=== PATIENT | male | born 1970 | race Caucasian/White ===

== ENCOUNTER 2017-11-16 20:38 | Emergency (ER) | payer OTHER ==
[2017-11-16] MEDS ORDERED: Proparacaine 0.5% Opth 15 ML BOT ONE (20:58)
[2017-11-16] MEDS ORDERED: Fluorescein Opthalmic Strip ONE (20:58)
== END 2017-11-16 21:22 | disposition home or self-care (01) ==
LOC: ERS 20:38
DX: S05.01XA Injury of conjunctiva and corneal abrasion without foreign body, right eye, initial encounter (principal); H11.31 Conjunctival hemorrhage, right eye; Z86.73 Personal history of transient ischemic attack (TIA), and cerebral infarction without residual deficits; X58.XXXA Exposure to other specified factors, initial encounter
CPT/HCPCS: 99283

== ENCOUNTER 2018-12-28 09:34 | Outpatient (CLI) | payer OTHER ==
--- NOTE | 2018-12-28 10:54 | CT ---
CT ABDOMEN AND PELVIS WITH CONTRAST: HISTORY: Lower abdominal pain. Periumbilical pain. COMPARISON: CT of 06/13/2014. FINDINGS: The lung bases are clear. No pericardial effusion. The liver, gallbladder, spleen, pancreas, and ad renal glands are all normal. The aortoiliac contour is nonaneurysmal. The liver is mild asymmetric with soft tissue swelling over the left flank involving the subcutaneous fat which may be the sequelae of a contusion with third spacing of fluid. There is mild diverticular disease of the sigmoid colon without active apparent inflammation. No dil ated loops of large or small bowel. The appendix is visualized and is normal. Gallbladder and liver are unremarkable. No hydronephrosis. Superior mesenteric artery and celiac tr unk are both patent. Inferior mesenteric artery is patent. Moderate posterior degenerative disk space height loss with disk-osteophyte complex at L5-S1. No acu te osseous abnormality. IMPRESSION: 1. No acute inflammatory process in the abdomen or pelvis. No findings to explain the patient's abd ominal pain. 2. Mild asymmetric left flank soft tissue swelling which could reflect third spacing of fluid, less likely a contusion. POS: [facility]
[2018-12-28] MEDS ORDERED: Iopamidol 370 76% 100 ML VIAL ONE (16:21)
== END 2018-12-28 09:35 | disposition home or self-care (01) ==
LOC: CT 09:34
PROVIDERS: ATTEND Physician Assistant Medical
DX: K57.30 Diverticulosis of large intestine without perforation or abscess without bleeding (principal); R10.30 Lower abdominal pain, unspecified; R14.0 Abdominal distension (gaseous); M79.89 Other specified soft tissue disorders
CPT/HCPCS: 74177; Q9967

== ENCOUNTER 2021-12-03 07:24 | Outpatient (CLI) | payer BC ==
[2021-12-03] MEDS ORDERED: GASTROGRAFIN 30 ML BOT ONE (10:38)
[2021-12-03] MEDS ORDERED: Iopamidol 370 76% 100 ML VIAL ONE (10:38)
== END 2021-12-03 07:25 | disposition home or self-care (01) ==
LOC: CT 07:24
PROVIDERS: ATTEND Physician Assistant Medical
DX: K57.92 Diverticulitis of intestine, part unspecified, without perforation or abscess without bleeding (principal); R10.30 Lower abdominal pain, unspecified; K52.9 Noninfective gastroenteritis and colitis, unspecified
CPT/HCPCS: 74177; Q9963; Q9967

== ENCOUNTER 2023-02-21 16:52 | Emergency (ER) | payer BC ==
[2023-02-21 17:37] LABS: #Basophils 0.1 thou/uL (0.0-0.2); #Eosinphils 0.4 thou/uL (0.0-0.7); #Monocytes 0.7 thou/uL (0.11-0.59); #Neutrophils 3.6 thou/uL (1.40-6.50); %Basophils 0.6 % (0.0-1.0); %Eosinophils 5.4 % (0.0-10.0); %Lymphocytes 38.4 % (21.0-51.0); %Monocytes 9.1 % (0.0-10.0); %Neutrophils 46.1 % (42.0-75.0); Hematocrit 43.4 % (42.0-52.0); Hemoglobin 14.5 g/dL (14.0-18.0); Mean Corpuscular HGB CONC 33.4 g/dL (32.0-36.0); Mean Corpuscular Volume 92.9 fl (78.0-98.0); Mean Platelet Volume 9.6 fL (7.4-10.4); Platelet Count 334 10x3/uL (130-400); RBC Distribution Width 12.4 % (11.5-14.5); Red Blood Cell (RBC) Count 4.67 mill/uL (4.70-6.10); White Blood Cell (WBC) Count 7.8 10x3/uL (4.8-10.8)
[2023-02-21 17:59] LABS: ALT (SGPT) 27 U/L (8-55); AST (SGOT) 23 U/L (5-34); Albumin 4.1 g/dL (3.5-5.0); Alkaline Phosphatase 29 U/L (40-110); Anion Gap 15 mmol/L (10-20); BUN (Urea Nitrogen) 12 mg/dL (8.4-25.7); Bilirubin, Total 0.5 mg/dL (0.2-1.2); Calc. Creatinine Clearance 0 mL/min (70-130); Calcium 8.8 mg/dL (7.8-10.44); Carbon Dioxide 25 mmol/L (22-29); Chloride 104 mmol/L (98-107); Estimated GFR 103; Globulin 3.1 g/dL (2.4-3.5); Glucose 89 mg/dL (70-105); Lipase 23 U/L (8-78); Potassium 3.9 mmol/L (3.5-5.1); Protein, Total 7.2 g/dL (6.0-8.3); Sodium 140 mmol/L (136-145)
[2023-02-21] MEDS ORDERED: Ketorolac Tromethamine 30 MG (1 mL) VIAL ONE (18:04)
[2023-02-21 18:08] LABS: Magnesium 2.1 mg/dL (1.6-2.6)
[2023-02-21 18:42] LABS: Troponin I Less than 0.010 ng/mL (< 0.028)
== END 2023-02-21 19:17 | disposition home or self-care (01) ==
LOC: ERS 16:52
DX: R10.11 Right upper quadrant pain (principal); R10.816 Epigastric abdominal tenderness
CPT/HCPCS: 36415; 71045; 76705; 80053; 83690; 83735; 83880; 84484; 85025; 93005; 96374; J1885

== ENCOUNTER 2023-10-20 08:46 | Emergency (ER) | payer BC ==
[2023-10-20 09:17] LABS: #Basophils 0.04 10x3/uL (0.0-0.2); %Basophils 0.3 % (0.0-1.0); %Eosinophils 0.8 % (0.0-10.0); %Lymphocytes 12.3 % (21.0-51.0); %Monocytes 4.4 % (0.0-10.0); %Neutrophils 81.7 % (42.0-75.0); Hematocrit 42.4 % (42.0-52.0); Hemoglobin 14.3 g/dL (14.0-18.0); Mean Corpuscular HGB CONC 33.7 g/dL (32.0-36.0); Mean Corpuscular Hemoglobin 30.4 pg (27.0-31.0); Mean Platelet Volume 9.4 fL (7.4-10.4); Platelet Count 352 10x3/uL (130-400); RBC Distribution Width 13.2 % (11.5-14.5); Red Blood Cell (RBC) Count 4.71 mill/uL (4.70-6.10)
[2023-10-20] MEDS ORDERED: Ketorolac Tromethamine 30 MG (1 mL) VIAL ONE (09:31)
[2023-10-20] MEDS ORDERED: Ondansetron PF 4 MG/2 ML Vial ONE (09:32)
[2023-10-20 09:36] LABS: ALT (SGPT) 24 U/L (8-55); AST (SGOT) 21 U/L (5-34); Albumin 3.9 g/dL (3.5-5.0); Alkaline Phosphatase 23 U/L (40-110); Anion Gap 13 mmol/L (10-20); BUN (Urea Nitrogen) 15 mg/dL (8.4-25.7); Bilirubin, Total 0.6 mg/dL (0.2-1.2); Calc. Creatinine Clearance 0 mL/min (70-130); Calcium 9.1 mg/dL (7.8-10.44); Carbon Dioxide 25 mmol/L (22-29); Chloride 105 mmol/L (98-107); Estimated GFR 102; Globulin 3.1 g/dL (2.4-3.5); Glucose 120 mg/dL (70-105); Potassium 4.3 mmol/L (3.5-5.1); Sodium 139 mmol/L (136-145)
[2023-10-20 10:43] LABS: Bacteria/HPF None Seen HPF (None Seen); Bilirubin Negative (Negative); Blood, Urine Negative (Negative); CAUTI Indications for Culture Pelvic or flank pain; Clarity Clear (Clear); Glucose, Urine (Dipstick) Normal (Negative); Ketone, Urine Negative (Negative); Leukocyte Negative Leu/uL (Negative); Nitrite Negative (Negative); Protein, Urine (Dipstick) Negative (Neg-Trace); RBC/HPF 0-3 HPF (0-3); Specific Gravity, Urine 1.022 (1.002-1.036); Squamous Epithelial None Seen HPF (0-3); Urobilinogen Normal mg/dL (Less than 2); WBC/HPF 0-3 HPF (0-3); pH, Urine 6.5 (5.0-9.0)
[2023-10-20 10:44] LABS: Urine Culture Reflex No No
[2023-10-20] MEDS ORDERED: Iopamidol-370 76% 500 ML MDV (1 ML CHARGE) ONE (14:09)
== END 2023-10-20 13:56 | disposition home or self-care (01) ==
LOC: ERS 08:46
DX: R10.32 Left lower quadrant pain (principal); K58.9 Irritable bowel syndrome, unspecified
CPT/HCPCS: 36415; 74174; 74176; 80053; 81001; 85025; 96361; 96374; 96375; J1885; J2405; Q9967

== ENCOUNTER 2023-11-20 14:19 | Outpatient (CLI) | payer BC | END 2023-11-20 14:20 | disposition home or self-care (01) | LOC: ULT 14:19 | PROVIDERS: ATTEND Internal Medicine Hematology & Oncology | DX: Q21.12 Patent foramen ovale (principal); Z86.73 Personal history of transient ischemic attack (TIA), and cerebral infarction without residual deficits | CPT/HCPCS: 93970 ==

== ENCOUNTER 2024-01-23 23:32 | Emergency (ER) | payer BC ==
[2024-01-24 00:12] LABS: #Basophils 0.03 10x3/uL (0.0-0.2); %Basophils 0.4 % (0.0-1.0); %Eosinophils 2.4 % (0.0-10.0); %Monocytes 12.7 % (0.0-10.0); %Neutrophils 52.1 % (42.0-75.0); Hematocrit 42.9 % (42.0-52.0); Hemoglobin 14.7 g/dL (14.0-18.0); Mean Corpuscular HGB CONC 34.3 g/dL (32.0-36.0); Mean Corpuscular Hemoglobin 30.4 pg (27.0-31.0); Mean Corpuscular Volume 88.6 fL (78.0-98.0); Mean Platelet Volume 9.5 fL (7.4-10.4); Platelet Count 345 10x3/uL (130-400); RBC Distribution Width 12.1 % (11.5-14.5); Red Blood Cell (RBC) Count 4.84 mill/uL (4.70-6.10)
[2024-01-24 00:33] LABS: Troponin I Less than 0.010 ng/mL (< 0.028)
[2024-01-24 00:41] LABS: ALT (SGPT) 38 U/L (8-55); AST (SGOT) 28 U/L (5-34); Alkaline Phosphatase 27 U/L (40-110); Anion Gap 13 mmol/L (10-20); BUN (Urea Nitrogen) 10 mg/dL (8.4-25.7); Calc. Creatinine Clearance 0 mL/min (70-130); Calcium 8.9 mg/dL (7.8-10.44); Carbon Dioxide 23 mmol/L (22-29); Chloride 106 mmol/L (98-107); Estimated GFR 100; Globulin 3.3 g/dL (2.4-3.5); Glucose 91 mg/dL (70-105); Potassium 3.6 mmol/L (3.5-5.1); Protein, Total 7.3 g/dL (6.0-8.3); Sodium 138 mmol/L (136-145)
[2024-01-24] MEDS ORDERED: Acetaminophen 500 MG TAB ONE (01:45)
[2024-01-24 02:04] LABS: Troponin I Less than 0.010 ng/mL (< 0.028)
== END 2024-01-24 02:59 | disposition home or self-care (01) ==
LOC: ERS 23:32
DX: R07.89 Other chest pain (principal); Z86.73 Personal history of transient ischemic attack (TIA), and cerebral infarction without residual deficits; Z87.891 Personal history of nicotine dependence; Z79.01 Long term (current) use of anticoagulants; Z79.899 Other long term (current) drug therapy
CPT/HCPCS: 36415; 71045; 80053; 84484; 85025; 93005

== ENCOUNTER 2024-06-13 07:28 | Outpatient (CLI) | payer BC | END 2024-06-13 07:29 | disposition home or self-care (01) | LOC: ULT 07:28 | PROVIDERS: ATTEND Internal Medicine Hematology & Oncology | DX: D68.61 Antiphospholipid syndrome (principal); Z86.73 Personal history of transient ischemic attack (TIA), and cerebral infarction without residual deficits | CPT/HCPCS: 93970 ==

== ENCOUNTER 2025-01-15 07:24 | Outpatient (CLI) | payer BC | END 2025-01-15 07:25 | disposition home or self-care (01) | LOC: CT 07:24 | PROVIDERS: ATTEND Internal Medicine Gastroenterology | DX: R10.32 Left lower quadrant pain (principal); K21.9 Gastro-esophageal reflux disease without esophagitis; Z86.73 Personal history of transient ischemic attack (TIA), and cerebral infarction without residual deficits; K40.20 Bilateral inguinal hernia, without obstruction or gangrene, not specified as recurrent; K42.9 Umbilical hernia without obstruction or gangrene; K56.2 Volvulus | CPT/HCPCS: 74177 ==